=== PATIENT | male | born 1990 | race Caucasian/White ===

== ENCOUNTER 2017-03-15 22:41 | Emergency (ER) | payer MEDICAID ==
[~2017-03-15] VITALS: Ht 180.3 cm; Wt 150.5 kg
[2017-03-15 22:41] VITALS: Ht 180.3 cm; Wt 150.5 kg
[~2017-03-15 22:41] MED LIST: OXYC-541 PO
--- OUTSIDE RECORDS SUMMARY | 2017-03-15 22:46 | XMS REPORT | Continuity of Care Document ---
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 Name Role Phone MICHELLE LUJAN Primary Care Physician [phone] Insurance Providers Guarantor Timur Zayas Address [address] [place] [address] Email DENIED/NO TO PT PORT Payer [facility] [place] Policy Number [id number] Subscriber's Name ChanaTimur Ny Relationship 18 Self Effective Date 16 Expiration Date 16 Advance Directives Directive Response Recorded Date/Time Advanced Directives Type None 10/01/16 11:45pm Chief Complaint and Reason for Visit Chief Complaint Male Urogenital Problems Reason for Visit [id number] Problems Active Problems Medical Problem Onset Date Status Finger sprain Unknown Acute Finger sprain Unknown Acute Hand injury Unknown Acute Jaw pain Unknown Acute Minor head injury Unknown Acute Past Problems Medical Problem Onset Date Deep inguinal pain, left Unknown Medications Current Home Medications Medication Dose Units Route Directions Days Qty Instructions Start Date Oxycodone Hcl/Acetaminophen (Oxycodone-Acetaminophen 5-325) 5-325 Tablet 1 Tab Oral Every 6 Hours for Pain 15 Tablet 10/02/16 Past Home Medications Medication Directions Ordered Status Concerta , 01/25/09 Discontinued Methylphenidate Hcl (Concerta) 54 Mg/Bottle Tab.osm.24, 1 Tab Oral Daily 04/26 Discontinued None , 11/29/12 Discontinued Ritalin , 01/25/09 Discontinued Wellbutrin , 01/25/09 Discontinued Social History Social History Problem Response Recorded Date/Time Onset Date Status Chewing Tobacco Status Yes 04/22/2014 6:37pm Not Applicable Not Applicable Hx Substance Use No 10/01/2016 11:57pm Not Applicable Not Applicable Hx Alcohol Use No 10/01/2016 11:57pm Not Applicable Not Applicable Query Response Start Date Stop Date Smoking Status Current some day smoker Hospital Discharge Instructions No hospital discharge instructions. Plan of Care Discharge Date 10/02/16 12:51am Disposition 01 DISCHARGED HOME, SELF-CARE Condition at Discharge Stable Instructions/Education Provided Groin Hernia -- Adult Prescriptions See Medication Section Referrals MICHELLE LUJAN Address: [address] [place] [address] [address] [place] [address] DON[facility] [place] Address: [address] [place] [address] [address] [place] [address] Additional Instructions/Education You will need to schedule an appointment with the surgeon. You can call [phone] to be referred to a surgeon's office. Functional Status No functional status results. Allergies, Adverse Reactions, Alerts Allergen Type Severity Reaction Status Last Updated Amoxicillin Allergy Unknown Active 04/22/14 Immunizations Query Response on File Recorded Date/Time Hx Tetanus, Diptheria, Pertussis Y 200704/22/14 6:37pm Hx Tetanus, Diptheria, Pertussis Y 200704/22/14 6:37pm Influenza Vaccine Hx NO 10/01/16 11:57pm Tetanus Diptheria Vaccine History PT REPORTS A COUPLE MONTHS AGO 10/01/16 11: 57pm Tdap Vaccine Hx PT REPORTS COUPLE MONTHS AGO 12/19/15 2:45pm Vital Signs Acute Vital Signs Vital Response Date/Time Temperature (Fahrenheit) 97.8 deg F (96.8 - 99.1) 10/01/2016 11:45pm Temperature (Calculated Celsius) 36.11767 degrees C (36.0 - 37.3) 10/01/2016 11:45pm Pulse Rate (adult) 95 bpm (60 - 100) 10/01/2016 11:45pm Respiratory Rate 18 breaths/min (10 - 20) 10/01/2016 11:45pm O2 Sat by Pulse Oximetry 95 % (90 - 100) 10/01/2016 11:45pm Blood Pressure 154/87 mm Hg 10/01/2016 11:45pm Height (Feet) 5 feet 10/01/2016 11:45pm Height (Inches) 9.00 inches 10/01/2016 11:45pm Weight (Kilograms) 144.000 kg 10/01/2016 11:45pm Body Mass Index (BMI) 46.0 10/01/2016 11:45pm Results No known relevant diagnostic tests, laboratory data and/or discharge summary. Procedures No known history of procedures. Encounters Encounter Location Arrival/Admit Date Discharge/Depart Date Attending Provider Departed Emergency Room [facility] 10/01/16 11:31pm 10/02/16 12: 51am MORAIMA GEORGES MD Recent Diagnosis
--- OUTSIDE RECORDS SUMMARY | 2017-03-15 22:46 | XMS REPORT | Continuity of Care Document ---
Author Author [facility] Organization [facility] Address Unknown Phone Unavailable Care Team Providers Care Residential Leasing Agent Name Role Phone MICHELLE LUJAN M.D. Primary Care Physician [phone] Insurance Providers Payer Name Policy Number Subscriber Name Relationship [employer] [id number] Timur Zayas 01 Self / Same As Patient Advance Directives Directive Response Recorded Date/Time Patient Resuscitation Status Full Code 12/11/14 7:56am Advance Directives No 12/11/14 7:56am Problems Medical Problems Problem Onset Date Status Chest wall pain Unknown Active Folliculitis Unknown Active Pharyngitis Unknown Active Weight gain Unknown Active Sleep apnea Unknown Active Tonsillar hypertrophy Unknown Active Nasal obstruction Unknown Active Nasal turbinate hypertrophy Unknown Active Tonsillar and adenoid hypertrophy Unknown Active Elevated LFTs Unknown Active Low T4 Unknown Active Pre-op evaluation 11/19/2014 Active Medications Medication Dose Route Sig Days/Qty Instructions Order Date Discontinued Date Status [place] Carbonate 600 Mg PO BEDTIME 06/06/14 11/05/14 Discontinued Cephalexin 500 Mg PO THREE TIMES A DAY For Not written in order 10 Days 06/06/14 11/05/14 Discontinued Cephalexin 500 Mg PO THREE TIMES A DAY For Not specified 12/05/14 Active Hydrocodone-Acetaminophen 7.5 Ml PO Every 4 hours as needed For Pain 200 Qty 12/10/14 12/10/14 Discontinued Mupirocin 1 Appl NA TWICE A DAY For Not specified 1 Qty 12/10/14 Active Hydrocodone-Acetaminophen 15 Ml PO Every 4 hours as needed For Pain 200 Qty 12/10/14 Active Social History Social History Problem Response Recorded Date/Time Smoking Status Light Tobacco Smoker 12/11/2014 7:56am Query Response Start Date Stop Date Smoking Status Light Tobacco Smoker Hospital Discharge Instructions No hospital discharge instructions. Plan of Care Prescriptions See Medications Section Follow-up Orders TSH Free T4 CMP H&H Chest 2 Views Ekg CBC Prothrombin Time PTT Functional Status Query Response Date Recorded Overall Activities Daily Living Ability/Staff Support Independ/No setup help December 11, 2014 7:56am Toileting Ability/Staff Support Independ/No setup help December 12, 2014 9:31am Oral Care Ability/Staff Support Independ/No setup help December 12, 2014 9:31am Upper Body Dressing Ability/Staff Support Independ/No setup help December 12, 2014 9:31am Lower Body Dressing Ability/Staff Support Independ/No setup help December 12, 2014 9:31am Allergies, Adverse Reactions, Alerts Allergen Type Severity Reaction Status Last Updated Penicillins Allergy Mild RASH Active 09/19/14 Immunizations Name Given Type Pneumonia Vaccine Received No Historical Had a Tetanus Toxoid Vaccination less than 10yrs ago Yes Historical Vital Signs Acute Vital Signs Vital Response Date/Time Blood Pressure 147/87 mm Hg Blood Pressure Mean 99 mm Hg Blood Pressure Mean 107 mm Hg Temperature (Fahrenheit) 98.2 degrees F (96.0 - 99.9) Temperature (Calculated Celsius) 36.01907 degrees C Temperature Source Axillary Temperature Source Oral Temp 98.0 degrees F (96.0 - 99.9) Temperature (Calculated Celsius) 36.28909 degrees C Pulse Pulse Rate (adult) 84 bpm (60 - 100) Pulse Rate (adult) 78 bpm (60 - 100) Pulse Rate: ED 88 bpm Respiratory Rate 16 breaths per minute (10 - 20) Respiratory Rate 14 bpm (10 - 20) Height (Feet) 5 ft Height (Inches) 8.5 in. Weight (Pounds) 318.0 lbs Height 5 ft 8.5 in Weight 318 lb Body Mass Index 47.6 kg/m^2 Ambulatory Vital Signs Vital Response Date/Time Height 5 ft 10 in 12/05/2014 2:41pm Weight 318 lbs 12/05/2014 2:41pm Temperature 98.3 degrees F 12/05/2014 2:41pm Blood Pressure 128/88 mm Hg 12/05/2014 2:41pm Pulse Rate 100 bpm 12/05/2014 2:41pm Respiration Rate 17 bpm 12/05/2014 2:41pm Body Surface Area 2.74 m2 12/05/2014 2:41pm Body Mass Index 45.6 kg/m2 12/05/2014 2:41pm Results Test Source Date Result Interp. Ref. Range Comments Lab Scanned Report December 06, 2014 2:57pm Lab Scanned Report [id number] Activated Partial Thromboplast Time November 19, 2014 12:55pm 32.6 SECONDS N 24.0-37.0 REASON FOR EXAM: Sleep apneaDx Code 780.57 Comments UNSPECIFIED SLEEP APNEA Prothromb Time International Ratio November 19, 2014 12:55pm 1.05 L 2.0- 3.0 REASON FOR EXAM: Sleep apneaDx Code 780.57 Comments UNSPECIFIED SLEEP APNEA Prothrombin Time Patient/Contrl Mix November 19, 2014 12:55pm 11.3 SECONDS N 9.0-12.0 REASON FOR EXAM: Sleep apneaDx Code 780.57 Comments UNSPECIFIED SLEEP APNEA Alanine Aminotransferase (ALT/SGPT) November 05, 2014 11:45am 68 U/L H 5- 40 REASON FOR EXAM: Weight gainDx Code 783.1 Comments ABNORMAL WEIGHT GAIN Albumin November 05, 2014 11:45am 4.4 gm/dL N 3.2-5.0 REASON FOR EXAM: Weight gainDx Code 783.1 Comments ABNORMAL WEIGHT GAIN Albumin/Globulin Ratio November 05, 2014 11:45am 1.7 N 1.4-2.4 REASON FOR EXAM: Weight gainDx Code 783.1 Comments ABNORMAL WEIGHT GAIN Alkaline Phosphatase November 05, 2014 11:45am 140 U/L H 35-125 REASON FOR EXAM: Weight gainDx Code 783.1 Comments ABNORMAL WEIGHT GAIN Anion Gap November 05, 2014 11:45am 10.4 N 6-13 REASON FOR EXAM: Weight gainDx Code 783.1 Comments ABNORMAL WEIGHT GAIN Aspartate Amino Transf (AST/SGOT) November 05, 2014 11:45am 31 U/L N 5- 40 REASON FOR EXAM: Weight gainDx Code 783.1 Comments ABNORMAL WEIGHT GAIN BUN/Creatinine Ratio November 05, 2014 11:45am 15.3 REASON FOR EXAM : Weight gainDx Code 783.1 Comments ABNORMAL WEIGHT GAIN Basophils # (Auto) November 19, 2014 12:55pm 0.0 K/uL N 0-0.2 REASON FOR EXAM: Sleep apneaDx Code 780.57 Comments UNSPECIFIED SLEEP APNEA Basophils (%) (Auto) November 19, 2014 12:55pm 0.2 % N 0-1 REASON FOR EXAM: Sleep apneaDx Code 780.57 Comments UNSPECIFIED SLEEP APNEA Bedside Glucose April 30, 2014 12:07am 103 mg/dL N 70-120 00 Blood Urea Nitrogen November 05, 2014 11:45am 15 mg/dL N 8-25 REASON FOR EXAM: Weight gainDx Code 783.1 Comments ABNORMAL WEIGHT GAIN Calcium Level November 05, 2014 11:45am 9.6 mg/dL N 8.2-10.6 REASON FOR EXAM: Weight gainDx Code 783.1 Comments ABNORMAL WEIGHT GAIN Carbon Dioxide Level November 05, 2014 11:45am 28 mEq/L N 22-34 REASON FOR EXAM: Weight gainDx Code 783.1 Comments ABNORMAL WEIGHT GAIN Chloride Level November 05, 2014 11:45am 103 mEq/L N 98-116 REASON FOR EXAM: Weight gainDx Code 783.1 Comments ABNORMAL WEIGHT GAIN Creatinine November 05, 2014 11:45am 0.98 mg/dL N 0.9-1.6 REASON FOR EXAM: Weight gainDx Code 783.1 Comments ABNORMAL WEIGHT GAIN Eosinophils # (Auto) November 19, 2014 12:55pm 0.2 K/uL N 0-0.8 REASON FOR EXAM: Sleep apneaDx Code 780.57 Comments UNSPECIFIED SLEEP APNEA Eosinophils (%) (Auto) November 19, 2014 12:55pm 1.5 % N 0-7.0 REASON FOR EXAM: Sleep apneaDx Code 780.57 Comments UNSPECIFIED SLEEP APNEA Free Thyroxine November 05, 2014 11:45am 0.51 ng/dL L 0.58-1.64 REASON FOR EXAM: Weight gainDx Code 783.1 Comments ABNORMAL WEIGHT GAIN Globulin November 05, 2014 11:45am 2.6 gm/dL N 2.0-3.0 REASON FOR EXAM: Weight gainDx Code 783.1 Comments ABNORMAL WEIGHT GAIN Glomerular Filtration Rate Calc November 05, 2014 11:45am > 60.00 mL/min MULTIPLY RESULT BY 1.210 IF THE PATIENT IS -AMERICANUnits are mL/ min/1.73 m2 > 60 Normal kidney function 30-59 Moderately decreased kidney function 15-29 Severely decreased kidney function <15 End-stage kidney failure Hematocrit November 19, 2014 12:55pm 44.2 % N 40.0-54.0 REASON FOR EXAM : Sleep apneaDx Code 780.57 Comments UNSPECIFIED SLEEP APNEA Hemoglobin November 19, 2014 12:55pm 15.2 g/dL N 14.0-18.0 REASON FOR EXAM: Sleep apneaDx Code 780.57 Comments UNSPECIFIED SLEEP APNEA Immature Granulocyte # (Auto) November 19, 2014 12:55pm 0.03 K/uL N 0- 0.40 REASON FOR EXAM: Sleep apneaDx Code 780.57 Comments UNSPECIFIED SLEEP APNEA Immature Granulocyte % (Auto) November 19, 2014 12:55pm 0.3 % N 0-0.5 REASON FOR EXAM: Sleep apneaDx Code 780.57 Comments UNSPECIFIED SLEEP APNEA Lymphocytes # (Auto) November 19, 2014 12:55pm 2.5 K/uL N 0.9-5.2 REASON FOR EXAM: Sleep apneaDx Code 780.57 Comments UNSPECIFIED SLEEP APNEA Lymphocytes (%) (Auto) November 19, 2014 12:55pm 24.0 % N 16.0-44.0 REASON FOR EXAM: Sleep apneaDx Code 780.57 Comments UNSPECIFIED SLEEP APNEA Mean Corpuscular Hemoglobin November 19, 2014 12:55pm 27.4 pg N 26.0- 33.0 REASON FOR EXAM: Sleep apneaDx Code 780.57 Comments UNSPECIFIED SLEEP APNEA Mean Corpuscular Hemoglobin Concent November 19, 2014 12:55pm 34.4 g/dL N 31.0-36.0 REASON FOR EXAM: Sleep apneaDx Code 780.57 Comments UNSPECIFIED SLEEP APNEA Mean Corpuscular Volume November 19, 2014 12:55pm 79.6 fL L 80.0-94.0 REASON FOR EXAM: Sleep apneaDx Code 780.57 Comments UNSPECIFIED SLEEP APNEA Mean Platelet Volume November 19, 2014 12:55pm 10.8 fL N 7.0-11.0 REASON FOR EXAM: Sleep apneaDx Code 780.57 Comments UNSPECIFIED SLEEP APNEA Monocytes # (Auto) November 19, 2014 12:55pm 0.8 K/uL N 0.16-1.0 REASON FOR EXAM: Sleep apneaDx Code 780.57 Comments UNSPECIFIED SLEEP APNEA Monocytes (%) (Auto) November 19, 2014 12:55pm 8.0 % N 2.0-9.0 REASON FOR EXAM: Sleep apneaDx Code 780.57 Comments UNSPECIFIED SLEEP APNEA Monoscreen November 05, 2014 11:46am Negative NEGATIVE Neutrophils # (Auto) November 19, 2014 12:55pm 6.8 K/uL N 1.9-8.0 REASON FOR EXAM: Sleep apneaDx Code 780.57 Comments UNSPECIFIED SLEEP APNEA Neutrophils (%) (Auto) November 19, 2014 12:55pm 66.0 % N 42.0-75.0 REASON FOR EXAM: Sleep apneaDx Code 780.57 Comments UNSPECIFIED SLEEP APNEA Nucleated Red Blood Cells # November 19, 2014 12:55pm 0.00 K/uL N 0.0- 0.012 REASON FOR EXAM: Sleep apneaDx Code 780.57 Comments UNSPECIFIED SLEEP APNEA Nucleated Red Blood Cells % November 19, 2014 12:55pm 0.0 /100WBC N 0-0 REASON FOR EXAM: Sleep apneaDx Code 780.57 Comments UNSPECIFIED SLEEP APNEA Platelet Count November 19, 2014 12:55pm 207 K/uL N 130-400 REASON FOR EXAM: Sleep apneaDx Code 780.57 Comments UNSPECIFIED SLEEP APNEA Potassium Level November 05, 2014 11:45am 4.4 mEq/L N 3.5-5.1 REASON FOR EXAM: Weight gainDx Code 783.1 Comments ABNORMAL WEIGHT GAIN RDW Standard Deviation November 19, 2014 12:55pm 37.6 fL N 35.1-43.9 REASON FOR EXAM: Sleep apneaDx Code 780.57 Comments UNSPECIFIED SLEEP APNEA Random Glucose November 05, 2014 11:45am 92 mg/dL N 65-115 REASON FOR EXAM: Weight gainDx Code 783.1 Comments ABNORMAL WEIGHT GAIN Red Blood Count November 19, 2014 12:55pm 5.55 M/uL H 4.60-5.40 REASON FOR EXAM: Sleep apneaDx Code 780.57 Comments UNSPECIFIED SLEEP APNEA Red Cell Distribution Width November 19, 2014 12:55pm 13.2 % N 11.5- 14.5 REASON FOR EXAM: Sleep apneaDx Code 780.57 Comments UNSPECIFIED SLEEP APNEA Sodium Level November 05, 2014 11:45am 137 mEq/L N 133-145 REASON FOR EXAM: Weight gainDx Code 783.1 Comments ABNORMAL WEIGHT GAIN Thyroid Stimulating Hormone (TSH) November 05, 2014 11:45am 2.02 uIU/ml N 0.34-5.60 REASON FOR EXAM: Weight gainDx Code 783.1 Comments ABNORMAL WEIGHT GAIN Total Bilirubin November 05, 2014 11:45am 0.7 mg/dL N 0.1-1.3 REASON FOR EXAM: Weight gainDx Code 783.1 Comments ABNORMAL WEIGHT GAIN Total Protein November 05, 2014 11:45am 7.0 gm/dL N 6.0-8.4 REASON FOR EXAM: Weight gainDx Code 783.1 Comments ABNORMAL WEIGHT GAIN White Blood Count November 19, 2014 12:55pm 10.4 K/uL H 5.0-10.0 REASON FOR EXAM: Sleep apneaDx Code 780.57 Comments UNSPECIFIED SLEEP APNEA Procedures Procedure Status Date Provider(s) Tonsillectomy and adenoidectomy completed 12/11/14 MAC SEBASTIAN MD Encounters Encounter Location Date/Time Office Visit [facility] 12/05/14 2:30pm Office Visit [facility] 11/19/14 9:00am Office Visit [facility] 11/05/14 10:00am Departed Emergency Room Kerri Yanes [facility] 06/06/14 7:59pm Departed Emergency Room [facility] Yanes [facility] 04/29/14 11:22pm
--- OUTSIDE RECORDS SUMMARY | 2017-03-15 22:46 | XMS REPORT | Continuity of Care Document ---
Author Author [facility] Organization [facility] Address Unknown Phone Unavailable Allergies Active Description Code Type Severity Reaction Onset Reported/Identified Relationship to Patient Clinical Status Yes penicillin NKMA Medium Adverse Reaction 02/15/2014 Yes amoxicillin amoxicillin Drug Allergy Mild RASH 12/19/2015 Yes amoxicillin amoxicillin Drug Allergy Unknown UNKNOWN 12/19/2015 Medications Problems Procedures Results Test Result Range CBC W/DIFF - 12/19/15 21:53 COMMENT REVIEWED GRANULOCYTE # 8.1 k/cumm 2.0-9.0 GRANULOCYTE % 75 % 50-75 LYMPHOCYTE # 1.9 k/cumm 1.0-4.0 LYMPHOCYTE % 17 % 20-30 MEAN CELL HGB 28.1 pg 27.0-33.0 MEAN CELL HGB CONCENTRATION 34.0 g/dL 32.0-37.0 MEAN CELL VOLUME 82.7 fl 80.0-100.0 MONOCYTE # 0.8 k/cumm 0.1-1.0 MONOCYTE % 7 % 4-6 RED BLOOD CELL 5.20 m/cumm 4.00-6.00 RED CELL DISTRIBUTION WIDTH 13.3 % 11.0- 15.6 WHITE BLOOD CELL 10.8 k/cumm 5.0-10.0 HEMOGLOBIN 14.6 gm/dL 14.0-18.0 HEMATOCRIT 43.0 % 40.0-54.0 PLATELET COUNT 232 k/cumm 150-400 REACTIVE LYMPH NOTED METABOLIC PANEL, COMPREHN - 12/19/15 21:53 POTASSIUM 4.1 mmol/L 3.5-5.3 EST GFR (MDRD) > 60 mL/min > 59 ANION GAP 8 mmol/L 5-15 EST CrCl (CG) > 60 mL/min > 59 GLUCOSE 108 mg/dL 70-99 CALCIUM 8.9 mg/dL 8.5-10.1 BLOOD UREA NITROGEN 14 mg/dL 7-20 CREATININE 1.1 mg/dL 0.7-1.3 SODIUM 141 mmol/L 135-148 CHLORIDE 104 mmol/L 98-110 AST/SGOT 34 Units/L 10-37 ALT/SGPT 67 Units/L < 66 CARBON DIOXIDE 29 mmol/L 21-32 TOTAL PROTEIN 7.4 gm/dL 6.4-8.2 ALBUMIN 4.2 gm/dL 3.4-5.0 BILI TOTAL 0.3 mg/dL 0.0-1.0 ALKALINE PHOSPHATASE TOTAL 126 IU/L 45- 117 MRSA SURVEILLANCE SCREEN - 12/20/15 00:45 Microbiology Encounters ACCT No. Visit Date/Time Discharge Status Pt. Type Provider Facility Loc./Unit Complaint [id number] 12/19/2015 20:55:00 2015 21:00:00 DIS Outpatient Manish DAVE, Florentino Francisco [facility] W.9TS
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
--- OUTSIDE RECORDS SUMMARY | 2017-03-15 23:17 | XMS REPORT | Continuity of Care Document ---
Author Author [facility] Organization [facility] Address Unknown Phone Unavailable Care Team Providers Care Composite Laminator Name Role Phone MICHELLE LUJAN M.D. Primary Care Physician [phone] Insurance Providers Payer Name Policy Number Subscriber Name Relationship [employer] [id number] Timur Zayas 01 Self / Same As [...] Days/Qty Instructions Order Date Discontinued Date Status [place] Carbonate 600 Mg PO BEDTIME 06/06/14 11/05/14 [...] F (96.0 - 99.9) Temperature (Calculated Celsius) 36.68540 degrees C Temperature Source Axillary Temperature Source Oral Temp 98.0 degrees F (96.0 - 99.9) Temperature (Calculated Celsius) 36.05420 degrees C Pulse Pulse Rate (adult) 84 [...] December 06, 2014 2:57pm Lab Scanned Report [id number] Activated Partial Thromboplast Time November 19, 2014 [...] 11/05/14 10:00am Departed Emergency Room Kerri Yanes [facility] 06/06/14 7:59pm Departed Emergency Room Kerri Yanes [facility] 04/29/14 11:22pm
--- OUTSIDE RECORDS SUMMARY | 2017-03-15 23:17 | XMS REPORT | Continuity of Care Document ---
Author Author [facility] Organization [facility] Address Unknown Phone Unavailable Allergies Active Description [...] Status Pt. Type Provider Facility Loc./Unit Complaint [id number] 12/19/2015 20:55:00 2015 21:00:00 DIS Outpatient Manish DAVE, Florentino Francisco [facility] [id number]
[2017-03-16] MEDS ORDERED: IBUPROFEN 200 MG TABLET PO ONE (00:15)
[2017-03-16 00:28] VITALS: BP 156/72; PULSE 89; RESP 20; TEMP 98.7; O2SAT 96
--- NOTE | 2017-03-16 00:28 | NUR ---
depart PT IS GIVEN DISMISSAL INSTRUCTIONS WITH VERBAL UNDERSTANDING. PT LEAVES AMBULATORY TO ED REGISTRATION DESK.
--- NOTE | 2017-03-16 07:26 | DI ---
Indication: ITS.REASON: pain over ulna and radius after "my wrist was twisted" PROCEDURE: WRIST RIGHT 3-4 VIEWS: Encounter: Initial Comparison: None Findings: There is no acute fracture, dislocation or malalignment identified. Old traumatic deformity of the distal radius with evidence of prior orthopedic hardware. Impression: No acute osseous abnormality. .
== END 2017-03-16 00:28 | disposition home or self-care (01) ==
LOC: ED 22:41
DX: M25.531 Pain in right wrist (principal); Y35.813A Legal intervention involving manhandling, suspect injured, initial encounter; Y93.89 Activity, other specified; Y92.9 Unspecified place or not applicable; Y99.8 Other external cause status